=== PATIENT | female | born 2000 | race Caucasian/White ===

== ENCOUNTER 2021-01-12 12:59 | Emergency (ER) | payer MEDICAID, SELFPAY ==
[2021-01-12 13:05] VITALS: BP 135/81; PULSE 90; RESP 20; TEMP 36.6; O2SAT 99
--- NOTE | 2021-01-12 13:52 | ED.HA ---
HPI - Headache General Chief Complaint: Headache Stated Complaint: headache Time Seen by Provider: 01/12/21 13:46 Source: patient Mode of arrival: ambulatory Limitations: no limitations History of Present Illness HPI Narrative: Patient is 20 years old white female presents with dull aching pain at the top of her head started 2 days ago. Patient started having similar headache 1-1/2-year ago, intermittent, last one was 1 month ago and was similar like the one today but was worse. Patient reports that her headache usually gets better on ibuprofen. Patient reports some nausea, denies any vomiting, blurred vision, neck pain, fever, chills, chest pain or shortness of breath. Patient did not receive any medication over the last 48 hours. Patient reported that the headache is intermittent, denies any aggravating or relieving factors. Related Data Home Medications Medication Instructions Recorded Confirmed No Home Medications 01/12/21 01/12/21 Allergies Allergy/AdvReac Type Severity Reaction Status Date / Time No Known Allergies Allergy Verified 01/12/21 13:08 Review of Systems Review of Systems: Narrative: CONSTITUTIONAL: Denies fever, chills, or sweats. EYES: Denies visual changes, redness, or discharge. ENT: Denies rhinorrhea, congestion, sore throat, or otalgia. CARDIOVASCULAR: Denies chest pain, palpitations, or edema. RESPIRATORY: Denies cough or dyspnea. GASTROINTESTINAL: Denies abdominal pain, nausea, vomiting, or diarrhea. GENITOURINARY: Denies dysuria or hematuria. SKIN: Denies rash or itching. MUSCULOSKELETAL: Denies back pain, joint pain, or myalgia. NEUROLOGIC: Denies headache, numbness, or weakness. PSYCHIATRIC: Denies anxiety or depression. PMFSH Social History Social History Gender identity (if verbalized by the patient): Female Exam Narrative: Exam Narrative: General appearance: Well-developed, well-nourished Skin: Normal color Head: Normocephalic, nontraumatic Eyes: Clear conjunctiva ENT: Oropharynx normal, ears normal, nose normal Neck: Supple, nontender Chest and respiratory: Airway patent, no respiratory distress, no accessory muscle use Heart: Regular rate/rhythm Abdomen: Soft, nontender, no organomegaly, quiet bowel sounds Vascular: Normal peripheral pulses, normal capillary refill. Musculoskeletal: Normal range of motion, nontender back Neurologic: Alert and oriented ?3, [employer] is normal as tested, no gross motor deficit Course Course Emergency Course: Improving Vital Signs Vital signs: Vital Signs Temperature 36.6 C 01/12/21 13:05 Pulse Rate 90 01/12/21 13:05 Respiratory Rate 20 01/12/21 13:05 Blood Pressure 135/81 01/12/21 13:05 Pulse Oximetry 99 01/12/21 13:05 Temperature 36.6 C 01/12/21 13:05 Pulse Rate 90 01/12/21 13:05 Respiratory Rate 20 01/12/21 13:05 Blood Pressure 135/81 01/12/21 13:05 Pulse Oximetry 99 01/12/21 13:05 MDM - Headache MDM Narrative Medical decision making narrative: Headache. Excedrin, Vistaril, Toradol IM ordered. Further plan to follow. Patient headache today is less intensity compared to 1 month ago. History of anxiety and depression, patient report a lot of stress lately. Headache secondary to anxiety/stress is my concern. Differential Diagnosis Differential diagnosis: Likely migraine, tension headache and headache Critical Care Time Critical Care Time Critical Care Time: No Discharge Plan Discharge Clinical Impression: Headache Patient Disposition: Home, Self-Care Condition: Improved Instructions: Acute Headache (DC) Additional Instructions: Return if symptoms
[2021-01-12] MEDS: ACETAMINOPHEN/ASPIRIN/CAFFEINE 250-250-65 MG TABLET 2 TABLET PO (14:36)
[2021-01-12] MEDS: hydrOXYzine pamoate 25 MG CAPSULE 50 MG PO (14:37)
[2021-01-12] MEDS: KETOROLAC (*BKC) 60 MG/2 ML VIAL IM (14:37)
[2021-01-12 15:54] VITALS: BP 122/90; PULSE 92; RESP 18; TEMP 36.6; O2SAT 99
== END 2021-01-12 15:54 | disposition home or self-care (01) ==
PROVIDERS: Emergency Provider Emergency Medicine
DX: R51.9 Headache, unspecified (principal)
CPT/HCPCS: 96372; 99283; A9270; J1885